=== PATIENT | male | born 1945 | race Caucasian/White ===

== ENCOUNTER → 2017-06-10 | Day surgery (SDC) | payer MEDICARE ==
[~2017-06-10] MED LIST: ATROPINE SULFATE 1% OPHT SOLN 5 ML BTL ONE; DEXAMETHASONE SOD PHOS 4 MG/ML VIAL ONE; EPINEPHrine HCL (1:1000) 1 MG/ML VIAL ONE; HYALURONIDASE/LIDOCAINE/BUPIVACAINE 5 ML SYR ONE; LACTATED RINGER'S 1000 ML INJ 1,000 ML ONE; NEOMYCIN/POLYMYXIN/DEXAMETHASONE OPTH OINT 3.5 GM TUBE ONE; PHENYLEPHRINE HCL 2.5 % OPTH SOLN 15 ML BTL ONE; PROPOFOL 200 MG/20 ML AMP IV ONE; SODIUM CHLORIDE 0.9% INJ 10 ML ONE; TETRACAINE 0.5% OPTH SOLN 15 ML BTL ONE; TRIAMCINOLONE ACETONIDE 40 MG/ML VIAL ONE; TROPICAMIDE 1% OPHT SOLN 15 ML BTL ONE; ceFAZolin INJ 1,000 MG VIAL ONE
--- NOTE | 2017-06-14 11:03 | TN ---
cc: GRABIEL RUTH MD DATE OF : 41 DATE OF SURGERY: 06/10/17 PREOPERATIVE DIAGNOSIS: Vitreoretinopathy, left eye. POSTOPERATIVE DIAGNOSIS: Vitreoretinopathy, left eye. OPERATION: Pars plana vitrectomy, left eye. ANESTHESIA: MAC. SURGEON: Grabiel Ruth MD. COMPLICATIONS: None. PROCEDURE: After informed consent was obtained, the patient was given retrobulbar anesthesia. He was then prepared and draped in the usual sterile fashion in the operating room. Wire lid speculum was placed in the patient's left eye. 23 gauge vitrectomy cannulas were then placed in the lower temporal, supratemporal and supranasal quadrants 3 millimeters posterior to corneoscleral limbus. An infusion cannula was placed lower temporally. Core vitrectomy was then performed. There was already a posterior vitreous detachment and vitrectomy was carried out as far as possible to the vitreous base. There were pre-retinal membranes present which were dissected with a pic and intraocular forceps, carefully peeled off the surface of the retina and removed. Complete air fluid exchange was then performed through a posterior retinotomy and the retina flattened nicely. Endolaser was used to treat the retinotomy as well as the retinal breaks and the retina at the vitreous base for 360 degrees. The air was then exchanged for 16% C3F8. The three vitrectomy cannulas were then removed. Subconjunctival injections of dexamethasone and Ancef were placed. An atropine drop, Maxitrol ointment, patch and shield were then applied. The patient tolerated the procedure well. There were no complications. He will remain positioned over the next week. [facility]. Grabiel Ruth MD TAB/PAULA /9:43 AM /10:58 AM
== END | disposition home or self-care (01) ==
LOC: ESDC 11:27
PROVIDERS: ATTEND Ophthalmology Retina Specialist
DX: H43.392 Other vitreous opacities, left eye (principal); H43.812 Vitreous degeneration, left eye; H35.033 Hypertensive retinopathy, bilateral; I10 Essential (primary) hypertension
CPT/HCPCS: 00145; 67043; J0171; J0690; J1100; J7120; J3301